=== PATIENT | male | born 1990 | race Caucasian/White ===

== ENCOUNTER 2019-06-01 15:47 | Emergency (ER) | payer BC ==
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
--- NOTE | 2019-06-01 18:04 | CR ---
INDICATION: injury TECHNIQUE: Left knee 3 views. COMPARISON: None. FINDINGS: Bones: Alignment is normal. No fractures or bone lesions. Joint spaces: Unremarkable. Soft tissues: Unremarkable. IMPRESSION: Unremarkable left knee. Dictated by: Ike Mccann MD @ 06/01/2019 18:02:52 (Electronically Signed)
[2019-06-01] MEDS ORDERED: Diphtheria,Pertussis(Acell),Tetanus Vaccine 0.5 ML Syringe IM ONE (18:40)
== END 2019-06-01 19:14 | disposition home or self-care (01) ==
LOC: MW.ED 15:47
DX: S81.012A Laceration without foreign body, left knee, initial encounter (principal); Z23 Encounter for immunization; Z90.49 Acquired absence of other specified parts of digestive tract; V86.92XA Unspecified occupant of snowmobile injured in nontraffic accident, initial encounter
CPT/HCPCS: 12001; 73562; 90471; 90715; 99283; J2001

== ENCOUNTER 2019-07-18 12:21 | Day surgery (SDC) | payer BC ==
[~2019-07-18 12:21] MED LIST: Clindamycin Phosphate in D5W 600 MG in Premix Bag 1 BAG IV SCH; Lactated Ringers 1,000 ML IV SCH
--- NOTE | 2019-07-18 13:36 | PCM.PREANE ---
Preanesthetic Assessment - Anesthesia/Transfusion/Family Hx Anesthesia History: Prior Anesthesia Without Reaction Family History of Anesthesia Reaction: No Transfusion History: No Prior Transfusion(s) Intubation History: Unknown - Review of Systems General: No Symptoms Pulmonary: No Symptoms Cardiovascular: No Symptoms Gastrointestinal: No Symptoms Neurological: No Symptoms Other: Reports: None - Physical Assessment Height: 5 ft 9 in Weight: 86.183 kg ASA Class: 2 Mental Status: Alert & Oriented x3 Airway Class: Mallampati = 1 Dentition: Reports: Normal Dentition Thyro-Mental Finger Breadths: 3 Mouth Opening Finger Breadths: 3 ROM/Head Extension: Full Lungs: Clear to Auscultation, Normal Respiratory Effort Cardiovascular: Regular Rate, Regular Rhythm - Allergies Allergies/Adverse Reactions: Allergies Allergy/AdvReac Type Severity Reaction Status Date / Time amoxicillin Allergy diarrhea/abd Verified 07/13/19 09:25 upset nut - unspecified Allergy itchy Verified 07/13/19 10:06 throat - Blood Blood Available: No - Anesthesia Plan Pre-Op Medication Ordered: None - Acknowledgements Anesthesia Type Planned: General Anesthesia Pt an Appropriate Candidate for the Planned Anesthesia: Yes Alternatives and Risks of Anesthesia Discussed w Pt/Guardian: Yes Pt/Guardian Understands and Agrees with Anesthesia Plan: Yes PreAnesthesia Questionnaire - Past Health History Medical/Surgical History: Denies Medical/Surgical History HEENT History: Reports: None Cardiovascular History: Reports: None Respiratory History: Reports: None Gastrointestinal History: Reports: Other (See Below) Other Gastrointestinal History: occasional heartburn Genitourinary History: Reports: Other (See Below) Other Genitourinary History: born with 1 kidney Musculoskeletal History: Reports: Other (See Below) (infected left knee wound) Neurological History: Reports: Concussion Psychiatric History: Reports: None Endocrine/Metabolic History: Reports: None Hematologic History: Reports: None Immunologic History: Reports: None Oncologic (Cancer) History: Reports: None Dermatologic History: Reports: Eczema Other Dermatologic History: scar on left arm from dog bite as a child, states had several stitches placed under anesthesia - Past Surgical History Head Surgeries/Procedures: Reports: None HEENT Surgical History: Reports: None Cardiovascular Surgical History: Reports: None Respiratory Surgical History: Reports: None GI Surgical History: Reports: Appendectomy Male Surgical History: Reports: None Endocrine Surgical History: Reports: None Neurological Surgical History: Reports: None Musculoskeletal Surgical History: Reports: None Oncologic Surgical History: Reports: None Dermatological Surgical History: Reports: Other (See Below) - SUBSTANCE USE Smoking Status *Q: Former Smoker (never serious smoker (in college)) Tobacco Use Within Last Twelve Months: No - HOME MEDS Home Medications: Home Meds Naproxen [Naprosyn] 500 mg PO BID PRN 06/01/19 [History] Acetaminophen/oxyCODONE [Percocet 325-5 MG] 1 each PO TID #21 tab 07/18/19 [Rx] - CURRENT (IN HOUSE) MEDS Current Meds: Current Medications Clindamycin Phosphate 600 mg/ (Premix) 50 mls @ 92.593 mls/hr IV ONCALL MARGARITA Lactated Ringer's (Ringers, Lactated) 1,000 mls @ 100 mls/hr IV ASDIRECTED MARGARITA
[2019-07-18] MEDS ORDERED: Bupivacaine 0.5%/EPINEPHrine 1:200,000 10 ML SDV ONE (14:04)
[2019-07-18] MEDS ORDERED: Propofol 200 MG/20 ML SDV ONE ×2 (14:09→15:01)
[2019-07-18] MEDS ORDERED: fentaNYL 100 MCG/2 ML SDV ONE (14:09)
[2019-07-18] MEDS ORDERED: Midazolam 1 MG/ML 2 ML SDV ONE (14:09)
[2019-07-18] MEDS ORDERED: Ondansetron 4 MG/2 ML SDV ONE (14:09)
[2019-07-18] MEDS ORDERED: Ketorolac 30 MG/ML SDV ONE (14:09)
[2019-07-18] MEDS ORDERED: Morphine 10 MG/ML Syringe ONE (14:12)
[2019-07-18] MEDS ORDERED: Desflurane 240 ML Bottle ONE (14:14)
--- NOTE | 2019-07-18 15:56 | PCM.POSTAN ---
POST ANESTHESIA ASSESSMENT - MENTAL STATUS Mental Status: Alert, Oriented - VITAL SIGNS Vital Signs: Last Vital Signs Temp 36.8 C 07/18/19 15:35 Pulse 85 07/18/19 15:50 Resp 19 07/18/19 15:50 BP 126/61 07/18/19 15:45 Pulse Ox 98 07/18/19 15:50 - RESPIRATORY Respiratory Status: Respiratory Rate WNL, Airway Patent, O2 Saturation Stable - CARDIOVASCULAR CV Status: Pulse Rate WNL, Blood Pressure Stable - GASTROINTESTINAL GI Status: No Symptoms - PAIN Pain Score: 0 - POST OP HYDRATION Hydration Status: Adequate & Stable - OBSERVATIONS Free Text/Narrative:: No anesthesia problems.
--- NOTE | 2019-07-18 16:25 | PCM48HPAN ---
Post Anesthesia Note - EVALUATION WITHIN 48HRS OF ANESTHETIC Vital Signs in Normal Range: Yes Patient Participated in Evaluation: Yes Respiratory Function Stable: Yes Airway Patent: Yes Cardiovascular Function Stable: Yes Hydration Status Stable: Yes Pain Control Satisfactory: Yes Nausea and Vomiting Control Satisfactory: Yes Mental Status Recovered: Yes Vital Signs: Last Vital Signs Temp 36.4 C 07/18/19 15:55 Pulse 68 07/18/19 16:21 Resp 16 07/18/19 16:21 BP 128/64 07/18/19 16:21 Pulse Ox 98 07/18/19 16:21 - COMMENTS/OBSERVATIONS Free Text/Narrative:: No anesthesia problems.
--- NOTE | 2019-07-19 16:57 | PCM.OPNOTE ---
- General Post-Op/Procedure Note Date of Surgery/Procedure: 07/18/19 Operative Procedure(s): irrigation and debridement of skin and subcutaneous tissue left knee Pre Op Diagnosis: draining wound left knee Post-Op Diagnosis: Same Anesthesia Technique: Moderate Sedation Primary Surgeon: Luis Watson Charge Entry Clerk: Patti Titus EBRayo in mLs: 25 Complications: None Condition: Good
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
== END 2019-07-18 16:31 | disposition home or self-care (01) ==
LOC: MW.SDS 12:21
PROVIDERS: ATTEND Orthopaedic Surgery
DX: S81.002A Unspecified open wound, left knee, initial encounter (principal); L08.9 Local infection of the skin and subcutaneous tissue, unspecified; K21.9 Gastro-esophageal reflux disease without esophagitis; Z87.891 Personal history of nicotine dependence; Z88.0 Allergy status to penicillin; Z91.018 Allergy to other foods
CPT/HCPCS: 11042; 87070; J0131; J1885; J2250; J2270; J2405; J2704; J3010; J3490; J7120; S0077